=== PATIENT | female | born 1980 | race Caucasian/White ===

== ENCOUNTER 2016-11-01 17:22 | Emergency (ER) | payer OTHER ==
[2016-11-01 15:23] LABS: URINE SOURCE CLEAN CATCH
[2016-11-01 15:39] LABS: URINE APPEARANCE CLEAR; URINE BILIRUBIN NEG (NEG); URINE BLOOD NEG (NEG); URINE COLOR YELLOW; URINE GLUCOSE NEG (NEG); URINE KETONE NEG (NEG); URINE LEUKOCYTE ESTERASE NEG (NEG); URINE NITRATE NEG (NEG); URINE PROTEIN NEG (NEG); URINE SPECIFIC GRAVITY 1.009 (1.003-1.035); URINE UROBILINOGEN 0.2 MG/DL (NEG)
[2016-11-01 16:00] LABS: CULTURE INDICATED? NO
[2016-11-01 17:07] LABS: BASOPHIL% 0.5 % (0-2.5); DIFF IND NO; EOSINOPHIL# 0.3 X10e3 (0-0.7); EOSINOPHIL% 4.3 % (0.0-7.0); HEMATOCRIT 38.1 % (35.0-45.0); HEMOGLOBIN 12.5 gm/dL (12.0-16.0); LYMPHOCYTE# 2.2 X10e3 (1.0-3.5); LYMPHOCYTE% 31.6 % (17.0-45.0); MEAN CELL VOLUME 91.4 FL (83-96); MEAN CORPUSCULAR HEMOGLOBIN 30.1 PG (28-34); MEAN CORPUSCULAR HGB CONC 32.9 g/dL (30-36); MEAN PLATELET VOLUME 8.7 FL (6.5-11.5); MONOCYTE# 0.4 X10e3 (0-1.0); MONOCYTE% 5.7 % (3.0-12.0); NEUTROPHIL# 4.1 X10e3 (1.5-7.1); NEUTROPHIL% 57.9 % (40-75); PLATELET COUNT 270 X10e3 (140-420); RED BLOOD COUNT 4.17 X10e (3.90-5.30); WHITE BLOOD COUNT 7.1 X10e3 (4.0-10.5)
[~2016-11-01 17:22] MED LIST: ADVIL200 M2 PO; ALBUTEROL17 GM; ALBUTEROL17 GM INH; ALKA-SELTZ PLUS1 CAP PO; AMOXICILLIN PO; BACTRIM DS TABL1 TA1 PO; BACTRIM DS TABL1 TA2; BAYER ASPIRIN325 M1 PO; BENZONATATE; BENZONATATE PO; DICLOFENAC PO; DIFLUCAN PO; EFFEXOR37.5 MG; ELIMITE60 GM TOP; FLAGYL PO; FLEXERIL10 M1 PO; FLEXERIL10 MG PO; FLONASE 0.05% N16 G1; IBUPROFEN600 MG PO; IBUPROFEN800 MG PO; MOBIC PO; NAPROSYN500 MG PO; NEURONTIN300 MG PO; NO MEDICATIONS; PEN-VEE K PO; PREDNISONE PO; PRENATAL1 TA1 PO; ROBAXIN PO; ROBITUSSIN COU118 ML PO; RONDEC-DM ORAL30 ML PO; SEROQUEL400 MG PO; SEROQUEL50 M1 PO; SUBOXONE 12 MG1 EACH PO; VIBRAMYCIN100 M1 PO; VOLTAREN75 MG PO; [UNRECOGNIZED DRUG - OTHER] PO
[2016-11-01 17:32] LABS: ALBUMIN SERUM 4.3 g/dL (3.5-5.0); ALKALINE PHOSPHATASE 42 U/L (32-92); ALT (SGPT) 13 U/L (10-40); AST (SGOT) 17 U/L (10-42); BILIRUBIN,TOTAL 0.6 mg/dL (0.2-2.0); BLOOD UREA NITROGEN 17 mg/dL (9-23); BUN/CREATININE RATIO 28.33; CALCIUM SERUM 9.2 mg/dL (8.4-10.2); CARBON DIOXIDE 27 mmol/L (22-31); CHLORIDE 105 mmol/L (100-111); CREATININE SERUM 0.6 mg/dL (0.6-1.4); GLOM FILT RATE Estimated 118.9 mL/min (>60); GLUCOSE FASTING 96 mg/dL (70-110); LIPASE 24 U/L (22-51); POTASSIUM 4.3 mmol/L (3.5-5.1); PROTEIN TOTAL SERUM 7.2 g/dL (6.0-8.3); SODIUM 139 mmol/L (135-145)
[2016-11-01 17:41] LABS: BILIRUBIN, DIRECT <0.1 mg/dL (0.0-0.2); BILIRUBIN,INDIRECT 0.5 mg/dL (0.0-0.9)
[2016-11-26] MEDS ORDERED: MULTI VITAMIN1 EACH (02:07)
[2016-11-26] MEDS ORDERED: SUBOXONE 12 MG1 EACH (02:07)
[2016-11-29] MEDS ORDERED: SEROQUEL50 M1 (13:50)
== END 2016-11-01 17:56 | disposition home or self-care (01) ==
LOC: CED 17:22
DX: F45.0 Somatization disorder (principal); T65.91XA Toxic effect of unspecified substance, accidental (unintentional), initial encounter; F41.9 Anxiety disorder, unspecified; F17.210 Nicotine dependence, cigarettes, uncomplicated; Z98.51 Tubal ligation status; Z88.8 Allergy status to other drugs, medicaments and biological substances
CPT/HCPCS: 36415; 80048; 80076; 81003; 83690; 85025; 99283; J1885

== ENCOUNTER → 2016-11-20 | Outpatient (CLI) | payer OTHER ==
[~2016-11-20] MED LIST changes: +MULTI VITAMIN1 EACH; +SEROQUEL50 M1; +SUBOXONE 12 MG1 EACH
[2016-11-20 18:36] LABS: BASOPHIL% 0.4 % (0-2.5); EOSINOPHIL# 0.3 X10e3 (0-0.7); EOSINOPHIL% 5.3 % (0.0-7.0); HEMATOCRIT 37.6 % (35.0-45.0); HEMOGLOBIN 12.5 gm/dL (12.0-16.0); LYMPHOCYTE# 2.6 X10e3 (1.0-3.5); LYMPHOCYTE% 41.8 % (17.0-45.0); MEAN CELL VOLUME 91.7 FL (83-96); MEAN CORPUSCULAR HEMOGLOBIN 30.6 PG (28-34); MEAN CORPUSCULAR HGB CONC 33.3 g/dL (30-36); MEAN PLATELET VOLUME 8.5 FL (6.5-11.5); MONOCYTE# 0.5 X10e3 (0-1.0); MONOCYTE% 7.7 % (3.0-12.0); NEUTROPHIL# 2.8 X10e3 (1.5-7.1); NEUTROPHIL% 44.8 % (40-75); PLATELET COUNT 261 X10e3 (140-420); RED CELL DISTRIBUTION WIDTH 14.5 % (11.0-15.5); WHITE BLOOD COUNT 6.3 X10e3 (4.0-10.5)
[2016-11-20 18:51] LABS: DIFF IND NO
[2016-11-20 19:05] LABS: BILIRUBIN,TOTAL 0.6 mg/dL (0.2-2.0); BUN/CREATININE RATIO 25.71; CALCIUM SERUM 8.8 mg/dL (8.4-10.2); CREATININE SERUM 0.7 mg/dL (0.6-1.4); POTASSIUM 4.3 mmol/L (3.5-5.1)
== END | disposition home or self-care (01) ==
LOC: CLAB 17:44
PROVIDERS: Psychiatry & Neurology Neurology
DX: F11.20 Opioid dependence, uncomplicated (principal)
CPT/HCPCS: 36415; 80053; 80061; 83036; 85025

== ENCOUNTER 2016-11-26 02:14 | Emergency (ER) | payer OTHER ==
[~2016-11-26 02:14] MED LIST changes: -SEROQUEL50 M1
[2016-11-29] MEDS ORDERED: SEROQUEL50 M1 (13:50)
== END 2016-11-26 02:28 | disposition home or self-care (01) ==
LOC: SED 02:14
DX: S56.911A Strain of unspecified muscles, fascia and tendons at forearm level, right arm, initial encounter (principal); F17.200 Nicotine dependence, unspecified, uncomplicated; X58.XXXA Exposure to other specified factors, initial encounter; Y92.9 Unspecified place or not applicable
CPT/HCPCS: 99283

== ENCOUNTER 2016-11-29 14:15 | Emergency (ER) | payer OTHER ==
[~2016-11-29 14:15] MED LIST changes: +SEROQUEL50 M1
== END 2016-11-29 15:01 | disposition home or self-care (01) ==
LOC: SED 14:15
DX: S83.91XA Sprain of unspecified site of right knee, initial encounter (principal); F17.210 Nicotine dependence, cigarettes, uncomplicated; X58.XXXA Exposure to other specified factors, initial encounter; Y92.009 Unspecified place in unspecified non-institutional (private) residence as the place of occurrence of the external cause
CPT/HCPCS: 29530; 96372; 99283; J1885

== ENCOUNTER 2016-12-16 23:48 | Emergency (ER) | payer OTHER ==
[2016-12-17 00:58] LABS: BASOPHIL% 0.4 % (0-2.5); EOSINOPHIL# 0.3 X10e3 (0-0.7); HEMATOCRIT 32.4 % (35.0-45.0); HEMOGLOBIN 11.2 gm/dL (12.0-16.0); LYMPHOCYTE# 2.7 X10e3 (1.0-3.5); LYMPHOCYTE% 34.3 % (17.0-45.0); MEAN CELL VOLUME 90.6 FL (83-96); MEAN CORPUSCULAR HEMOGLOBIN 31.3 PG (28-34); MEAN CORPUSCULAR HGB CONC 34.5 g/dL (30-36); MEAN PLATELET VOLUME 7.9 FL (6.5-11.5); MONOCYTE# 0.5 X10e3 (0-1.0); MONOCYTE% 6.7 % (3.0-12.0); NEUTROPHIL# 4.3 X10e3 (1.5-7.1); NEUTROPHIL% 54.6 % (40-75); PLATELET COUNT 223 X10e3 (140-420); RED BLOOD COUNT 3.57 X10e (3.90-5.30); RED CELL DISTRIBUTION WIDTH 13.3 % (11.0-15.5); WHITE BLOOD COUNT 7.9 X10e3 (4.0-10.5)
[2016-12-17 01:00] LABS: DIFF IND NO
[2016-12-17 01:11] LABS: PROTHROMBIN TIME (PATIENT) 11.1 SECONDS (9.5-12.4)
[2016-12-17 01:18] LABS: PARTIAL THROMBOPLASTIN TIME 29.6 SECONDS (25.6-38.1)
[2016-12-17 01:25] LABS: ALBUMIN SERUM 3.6 g/dL (3.5-5.0); ALKALINE PHOSPHATASE 41 U/L (32-92); ALT (SGPT) 14 U/L (10-40); AST (SGOT) 17 U/L (10-42); BILIRUBIN,TOTAL 0.4 mg/dL (0.2-2.0); BLOOD UREA NITROGEN 21 mg/dL (9-23); CALCIUM SERUM 8.8 mg/dL (8.4-10.2); CARBON DIOXIDE 26 mmol/L (22-31); CHLORIDE 107 mmol/L (100-111); CREATININE SERUM 0.6 mg/dL (0.6-1.4); GLOM FILT RATE Estimated 118.9 mL/min (>60); GLUCOSE FASTING 101 mg/dL (70-110); POTASSIUM 4.3 mmol/L (3.5-5.1); PROTEIN TOTAL SERUM 6.4 g/dL (6.0-8.3); SODIUM 138 mmol/L (135-145)
[2016-12-17 01:26] LABS: BILIRUBIN, DIRECT <0.1 mg/dL (0.0-0.2); BILIRUBIN,INDIRECT 0.3 mg/dL (0.0-0.9)
== END 2016-12-17 01:55 | disposition home or self-care (01) ==
LOC: SED 23:48
PROVIDERS: Physician Assistant
DX: N93.9 Abnormal uterine and vaginal bleeding, unspecified (principal); F17.210 Nicotine dependence, cigarettes, uncomplicated; Z88.8 Allergy status to other drugs, medicaments and biological substances; Z91.048 Other nonmedicinal substance allergy status; Z79.899 Other long term (current) drug therapy
CPT/HCPCS: 36415; 80048; 80076; 84703; 85025; 85610; 85730; 96361; 96374; 96375; 99284; J1170; J1885; J2405

== ENCOUNTER → 2017-01-05 | Outpatient (CLI) | payer OTHER ==
[2017-01-05 12:45] LABS: BASOPHIL% 0.4 % (0-2.5); EOSINOPHIL# 0.1 X10e3 (0-0.7); EOSINOPHIL% 2.6 % (0.0-7.0); HEMATOCRIT 37.3 % (35.0-45.0); HEMOGLOBIN 12.4 gm/dL (12.0-16.0); LYMPHOCYTE# 1.8 X10e3 (1.0-3.5); MEAN CELL VOLUME 91.9 FL (83-96); MEAN CORPUSCULAR HEMOGLOBIN 30.6 PG (28-34); MEAN CORPUSCULAR HGB CONC 33.2 g/dL (30-36); MEAN PLATELET VOLUME 8.6 FL (6.5-11.5); MONOCYTE# 0.2 X10e3 (0-1.0); NEUTROPHIL# 3.5 X10e3 (1.5-7.1); PLATELET COUNT 229 X10e3 (140-420); RED BLOOD COUNT 4.05 X10e (3.90-5.30); RED CELL DISTRIBUTION WIDTH 12.9 % (11.0-15.5); WHITE BLOOD COUNT 5.7 X10e3 (4.0-10.5)
[2017-01-05 12:54] LABS: DIFF IND NO
[2017-01-05 13:11] LABS: ALBUMIN SERUM 4.2 g/dL (3.5-5.0); BILIRUBIN, DIRECT 0.1 mg/dL (0.0-0.2); BILIRUBIN,TOTAL 0.9 mg/dL (0.2-2.0); BUN/CREATININE RATIO 17.14; CALCIUM SERUM 9.1 mg/dL (8.4-10.2); CREATININE SERUM 0.7 mg/dL (0.6-1.4); POTASSIUM 4.3 mmol/L (3.5-5.1); PROTEIN TOTAL SERUM 7.1 g/dL (6.0-8.3)
== END | disposition home or self-care (01) ==
LOC: CLAB 11:58
PROVIDERS: Psychiatry & Neurology Neurology
DX: F11.20 Opioid dependence, uncomplicated (principal)
CPT/HCPCS: 36415; 80053; 82248; 85025

== ENCOUNTER 2017-04-20 14:19 | Emergency (ER) | payer OTHER ==
[~2017-04-20] VITALS: Ht 165.1 cm; Wt 70.3 kg
== END 2017-04-20 15:30 | disposition home or self-care (01) ==
LOC: CFTX 14:19 → CED 14:19 → CFTX 14:40
DX: R20.2 Paresthesia of skin (principal); F41.9 Anxiety disorder, unspecified; F17.210 Nicotine dependence, cigarettes, uncomplicated; Z88.8 Allergy status to other drugs, medicaments and biological substances
CPT/HCPCS: 99283